=== PATIENT | male | born 1955 | race Caucasian/White ===

== ENCOUNTER 2024-08-05 16:25 | Emergency (ER) | payer OTHER, SELFPAY ==
[2024-08-05 16:26] VITALS: BP 116/74
[2024-08-05 16:55] VITALS: BP 126/81
--- NOTE | 2024-08-05 16:59 | ED.GENMED ---
History of Present Illness
<Kvng Li MD, Resident - Last Filed: 08/05/24 20:38>
General
Chief Complaint: Flank Pain
Source: patient and spouse
Time Seen by Provider: 08/05/24 16:58
Nursing documentation reviewed up to this point in time: agreed with
Travel History
Have you traveled to any high risk areas for coronavirus over the past 14 days?: No
Have you had any contact with someone who has COVID-19?: No
Do you have any symptoms of coronavirus? Fever > 100 degrees, chills, cough, shortness of breath, sore throat, loss of taste or smell, muscle aches, or headache?: No
History of Present Illness
History of Present Illness:
68-year-old male with PMH of hypercholesterolemia, essential hypertension, splenic aneurysm presenting to the emergency department today with right flank pain that started yesterday evening before bedtime. He was seen at [facility] and was
evaluated with a CT scan that showed 4.3 mm stone in the right ureter closer to the bladder per patient. Pain was rated 10/10 at its worst. He reports some nausea but no vomiting. Patient was discharged with Percocet, tamsulosin and Zofran. He
reports that he has taking Percocets twice today and the pain has been returning around every 5 hours. He also took his first dose of tamsulosin 2 hours [employer]. His pain has reduced to 2/10. He denies chest pain, shortness of breath, urinary
symptoms, palpitations, constipation, history of abdominal surgeries. He however endorses some chills earlier today but no fever.
Past History
<Kvng Li MD, Resident - Last Filed: 08/05/24 20:38>
Past History
ED Past Medical History: HTN, Hypercholesterolemia and Other (splenic artery aneurysm)
ED Past Surgical History: None
Patient has exhibited threatening behavior?: No
PSI?: No
Social History
Tobacco: Non-smoker
Alcohol: None
Drug: None
Personal:
Living: with family
Employment: Employed
Family History
Family History: Negative Early CAD
Review of Systems
<Kvng Li MD, Resident - Last Filed: 08/05/24 20:38>
Review of Systems
All Other Systems: ROS reviewed and negative except as documented in HPI and ROS
Phy Exam
<Kvng Li MD, Resident - Last Filed: 08/05/24 20:38>
Physical Exam
Physical Exam:
GENERAL: Alert and oriented x 3, NAD. Afebrile
HEAD: NC/AT
OROPHARYNX: no exudate or ulcers.
EYE: pupils equal and reactive extraocular muscles
NECK: Supple, no significant adenopathy.
CARDIAC: Regular rate and rhythm without any obvious murmurs.
LUNGS: Normal breath sounds,normal-no rhonchi. Not bronchospastic.
ABDOMEN: Soft, right flank tenderness, ND, no peritoneal signs.
NEUROLOGICAL: Alert and oriented x 3. No focal neurological deficit.
SKIN: Warm and dry, no rash or lesion, no discoloration, skin intact.
MUSCULOSKELETAL: Full range of motion of extremities.
LYMPHATIC:No lymph nodes on his neck or supraclavicular area.
PSYCH: Normal and appropriate interaction.
General Physical Exam
General Habitus: obese
Course
<Kvng Li MD, Resident - Last Filed: 08/05/24 20:38>
Orders/Labs/Results
Orders:
Orders
08/05/24 17:22
0.9% Sodium Chloride 1000 ml [Nss] 1,000 ml IV BOLUS
Morphine Sulfate 4 mg IV NOW STA
08/05/24 17:33
Ketorolac [Toradol] 15 mg IV NOW STA
08/05/24 17:40
Add On- LAB Urgent
Tests Added?: Lipase
08/05/24 17:42
Complete Blood Count/With Diff Urgent
Comprehensive Metabolic Panel Urgent
Direct Bilirubin Urgent
Lipase Urgent
Comment: ADD ON
Urinalysis Urgent
Date Specimen was Collected: 08/05/24
Time Specimen was Collected: 17:30
Urine Microscopic Urgent
Date Specimen was Collected: 08/05/24
Time Specimen was Collected: 17:30
08/05/24 18:06
Ondansetron Injectable [Zofran] 4 mg IV NOW STA
Abnormal Lab Results
08/05/24
17:42
RBC 3.99 L 10^6/uL
(4.70-6.10)
Hgb 12.4 L g/dL
(13.0-18.0)
Hct 35.9 L %
(39.0-52.0)
MCH 31.1 H pg
(27.0-31.0)
Absolute Neuts (auto) 6.7 H 10^3/uL
(1.4-6.5)
Absolute Lymphs (auto) 0.6 L 10^3/uL
(1.2-3.4)
Absolute Monos (auto) 0.7 H 10^3/uL
(0.1-0.6)
Neutrophils % 83.0 H %
(42.2-75.2)
Lymphocytes % 7.6 L %
(20.5-51.1)
BUN 25 H mg/dl
(9-20)
Glucose 120 H mg/dl
(70-99)
Urine Occult Blood 3+ A
(Negative)
Urine RBC 11-15 A /HPF
(0-2)
Urine Bacteria Few A
(Negative)
Urine Albumin 2+ A
(Neg - Trace)
08/05/24 17:42
08/05/24 17:42
Vital Signs
Initial and Last Documented VS:
Initial Vital Signs
Temp Pulse Resp BP Pulse Ox
98.5 F 104 16 116/74 97
08/05/24 16:26 08/05/24 16:26 08/05/24 16:26 08/05/24 16:26 08/05/24 16:26
Last Documented Vital Signs
Temp Pulse Resp BP Pulse Ox
98.0 F 92 14 127/69 97
08/05/24 17:00 08/05/24 20:00 08/05/24 20:00 08/05/24 20:00 08/05/24 20:00
<Donald Hernandez, DO - Last Filed: 08/05/24 18:08>
Orders/Labs/Results
Orders:
Orders
08/05/24 17:22
0.9% Sodium Chloride 1000 ml [Nss] 1,000 ml IV BOLUS
Morphine Sulfate 4 mg IV NOW STA
08/05/24 17:33
Ketorolac [Toradol] 15 mg IV NOW STA
08/05/24 17:40
Add On- LAB Urgent
Tests Added?: Lipase
08/05/24 17:42
Complete Blood Count/With Diff Urgent
Comprehensive Metabolic Panel Urgent
Direct Bilirubin Urgent
Lipase Urgent
Comment: ADD ON
Urinalysis Urgent
Date Specimen was Collected: 08/05/24
Time Specimen was Collected: 17:30
Urine Microscopic Urgent
Date Specimen was Collected: 08/05/24
Time Specimen was Collected: 17:30
08/05/24 18:06
Ondansetron Injectable [Zofran] 4 mg IV NOW STA
Abnormal Lab Results
08/05/24
17:42
RBC 3.99 L 10^6/uL
(4.70-6.10)
Hgb 12.4 L g/dL
(13.0-18.0)
Hct 35.9 L %
(39.0-52.0)
MCH 31.1 H pg
(27.0-31.0)
Absolute Neuts (auto) 6.7 H 10^3/uL
(1.4-6.5)
Absolute Lymphs (auto) 0.6 L 10^3/uL
(1.2-3.4)
Absolute Monos (auto) 0.7 H 10^3/uL
(0.1-0.6)
Neutrophils % 83.0 H %
(42.2-75.2)
Lymphocytes % 7.6 L %
(20.5-51.1)
BUN 25 H mg/dl
(9-20)
Glucose 120 H mg/dl
(70-99)
Urine Occult Blood 3+ A
(Negative)
Urine RBC 11-15 A /HPF
(0-2)
Urine Bacteria Few A
(Negative)
Urine Albumin 2+ A
(Neg - Trace)
08/05/24 17:42
08/05/24 17:42
Vital Signs
Initial and Last Documented VS:
Initial Vital Signs
Temp Pulse Resp BP Pulse Ox
98.5 F 104 16 116/74 97
08/05/24 16:26 08/05/24 16:26 08/05/24 16:26 08/05/24 16:26 08/05/24 16:26
Last Documented Vital Signs
Temp Pulse Resp BP Pulse Ox
98.0 F 92 14 127/69 97
08/05/24 17:00 08/05/24 20:00 08/05/24 20:00 08/05/24 20:00 08/05/24 20:00
<Kvng Sarabjit Li MD, Resident - Last Filed: 08/05/24 20:38>
MDM/Problems Addressed
MDM/Problems Addressed:
68-year-old male with PMH of hypercholesterolemia, essential hypertension, splenic aneurysm presenting to the emergency department today with right flank pain that started yesterday evening before bedtime. He was seen at [facility] and was
evaluated with a CT scan that showed 4.3 mm stone in the right ureter closer to the bladder per patient. Suspect his pain was from passing stone vs cholecystitis. CBC, CMP, direct bilirubin, lipase, urinalysis pending. Patient is hemodynamically
stable and comfortable. Will give IV fluid bolus, IV Zofran, IV Toradol and morphine for pain control. No indication to repeat CT scan. Will treat symptomatically from this standpoint and have patient strain his urine. Patient already took 0.4
mg tamsulosin today. Will give 10 mg Norvasc which will also help pass the stone. Patient has been instructed to take extra care standing up from a sitting or lying position while on these medications to prevent falls.
<Kvng Li MD, Resident - Last Filed: 08/05/24 20:38>
*Critical Care Note
Total Time (30-74mins, 75-104mins- exclusive of procedures): Not Applicable
<Kvng Li MD, Resident - Last Filed: 08/05/24 20:38>
Update Note
Update Note:
Patient feeling better. Remains hemodynamically stable and comfortable. Urinalysis positive for occult blood otherwise unremarkable. Patient is medically stable for discharge. He will continue taking his Percocet every 4 hours as needed,
tamsulosin and Norvasc as prescribed.
ED Attending Note
<Kvng Li MD, Resident - Last Filed: 08/05/24 20:38>
-
Portions of this chart may have been created with voice recognition software.� Occasional wrong word or��sound alike� substitutions may have occurred due to the inherent limitations of voice recognition software.
<Donald Hernandez, DO - Last Filed: 08/05/24 18:08>
ED Attending Note
Patient seen and examined by attending physician: Yes
I performed the substantive portion of visit, reviewed & personally made and approve the management plan that is documented in note by myself or CIRA.: Yes
ED Attending Note:
Seen with resident examined independently 68-year-old male diagnosed with kidney stone 4.5 mm at [place] earlier this morning, has been taking some Percocet every 8 with breakthrough pain, no fevers question of chills, will hydrate up his
medications, check urinalysis
Discharge Plan
Departure
Patient Disposition: Home (Routine Discharge)
Date of Disposition: 08/05/24
Time of Disposition: 19:49
Patient with high blood pressure during this ER visit?: No
Condition: Good
Discharge Problem:
Kidney stone
Instructions: Flank Pain (DC)
Prescriptions:
New
oxycodone-acetaminophen [Percocet] 5-325 mg tablet
1 tab PO Q4HPRN PRN (Reason: pain) Qty: 14 0RF
No Action
sertraline 50 MG tablet
50 mg PO HS
pantoprazole 40 MG tablet,delayed release (DR/EC)
40 mg PO DAILY Qty: 30 0RF
Rx Instructions:
Take 30 minutes prior to breakfast
Referrals:
Jose Tubbs MD [Active] - Next open appointment
Rey Qureshi MD [Family Provider] -
Interventions
Interventions:
*Risk Screen - Suicide Last Done: 08/05/24 16:26
*General Assessment Last Done: 08/05/24 16:26
*Neglect/Abuse Screening Last Done: 08/05/24 19:04
ED- Fall Risk Assessment Last Done: 08/05/24 19:04
*ED COVID-19 Vaccine History Last Done: 08/05/24 16:26
*Nursing Disposition Last Done: 08/05/24 20:10
WM-Xczjkq-Jzcdaaahgm Assessment Last Done: 08/05/24 18:56
ED-Male Genitourinary Assessment Last Done: 08/05/24 18:56
Discharge Date and Time
Discharge Date/Time: 08/05/24 20:15
Print Language: [email or web address]
[2024-08-05 17:00] VITALS: BP 127/78
[2024-08-05 17:54] LABS: % Basophils 0.2 % (0-2); % Eosinophils 0.1 % (0-6); % Immature Granulocytes 0.4 % (0-0.5); % Lymphocytes 7.6 % (20.5-51.1); % Monocytes 8.7 % (1.7-9.3); Absolute Lymphocytes 0.6 10^3/uL (1.2-3.4); Absolute Monocytes 0.7 10^3/uL (0.1-0.6); Absolute Neutrophils 6.7 10^3/uL (1.4-6.5); Hematocrit 35.9 % (39.0-52.0); Hemoglobin 12.4 g/dL (13.0-18.0); Mean Corp Hgb Conc. 34.5 g/dL (33.0-37.0); Mean Corpuscular Hgb 31.1 pg (27.0-31.0); Mean Platelet Volume 10.1 fL (7.4-10.4); Nucleated Red Blood Cells % 0 % (-); Platelet Count 188 10^3/uL (130-400); Red Blood Cell Count 3.99 10^6/uL (4.70-6.10); Red Cell Dist. Width 13.3 % (11.5-14.5); White Blood Cell Count 8.1 10^3/uL (4.8-10.8)
[2024-08-05 18:00] VITALS: BP 130/73
[2024-08-05 18:04] LABS: Urine Albumin 2+ (Neg - Trace); Urine Bilirubin Negative (Negative); Urine Character Clear (Clear); Urine Color Yellow; Urine Glucose Negative (Negative); Urine Ketone Negative (Negative); Urine Leukocyte Negative (Negative); Urine Nitrite Negative (Negative); Urine Occult Blood 3+ (Negative); Urine Urobilinogen Negative (Neg - 1+)
[2024-08-05 18:17] LABS: ALT (SGPT) 29 U/L (0-50); AST (SGOT) 27 U/L (17-59); Albumin 3.8 g/dl (3.5-5.0); Alkaline Phosphatase 84 U/L (38-126); Blood Urea Nitrogen 25 mg/dl (9-20); Calcium 8.6 mg/dl (8.4-10.2); Carbon Dioxide 27 mmol/L (22-30); Chloride 106 mmol/L (98-107); Glucose 120 mg/dl (70-99); Lipase 27 U/L (23-300); Potassium 3.7 mmol/L (3.5-5.1); Sodium 138 mmol/L (135-145); Total Bilirubin 0.9 mg/dl (0.2-1.3); Total Protein 6.4 g/dl (6.3-8.2)
[2024-08-05 18:27] LABS: Urine Bacteria Few (Negative); Urine Mucus Moderate; Urine White Cell 0-2 /HPF (0-5)
[2024-08-05] MEDS: ZOFRAN 4 MG IV (18:39)
[2024-08-05] MEDS: MORPHINE SULFATE 4 MG IV (18:39)
[2024-08-05] MEDS: TORADOL 15 MG IV (18:39)
[2024-08-05] MEDS: NSS 1000 IV (18:40)
[2024-08-05 19:00] VITALS: BP 118/65
[2024-08-05 20:00] VITALS: BP 127/69
== END 2024-08-05 20:15 | disposition home or self-care (01) ==
LOC: EMR 16:25
PROVIDERS: Student in an Organized Health Care Education/Training Program; EMERGENCY PHYSICIAN Emergency Medicine; FAMILY PHYSICIAN Internal Medicine
DX: N20.2 Calculus of kidney with calculus of ureter (principal); R11.0 Nausea; R68.83 Chills (without fever); E78.00 Pure hypercholesterolemia, unspecified; I10 Essential (primary) hypertension; I72.8 Aneurysm of other specified arteries
CPT/HCPCS: 99284; 96374; 96375 ×2; 80053; 81003; 81015; 82248; 83690; 85025

== ENCOUNTER → 2024-09-20 10:08 | Outpatient (REF) | payer OTHER, SELFPAY | LOC: RAD 10:08 | PROVIDERS: ATTENDING PHYSICIAN Surgery; FAMILY PHYSICIAN Family Medicine | DX: N13.2 Hydronephrosis with renal and ureteral calculous obstruction (principal) | CPT/HCPCS: 74018 ==